=== PATIENT | female | born 1945 | race Caucasian/White ===

== ENCOUNTER 2017-06-16 13:21 | Emergency (ER) | payer MEDICARE, BC ==
[2017-06-16 14:12] VITALS: BP 123/55
--- OUTSIDE RECORDS SUMMARY | 2017-06-16 14:39 | XMS REPORT ---
:1945 External Reference #:[id number] Author Organization [employer] Address [address] [place] [address] Phone [phone] Care Team Providers Name Role Phone Jr Esposito MD Care Team Information Mining Technician Unavailable Jr Esposito MD Primary Care Physician Unavailable Payers Type Date Identification Numbers Payment Provider Subscriber Medicare Primary Policy Number: [id number] Medicare Sharri Almonte PayID: [id number] [address] [place] [address] Health Maintenance Policy Number: [facility] Sharri Almonte [facility] (HMO) [id number] [facility] PayID: [id number] [address] [place] [address] Problems Description No Information Social History Description No Information Available Allergies, Adverse Reactions, Alerts Date Description Reaction Status Severity Comments 02/22/2017 Erythromycin active 02/22/2017 Meloxicam active 02/22/2017 Tramadol active Medications Medication Date Status Form Strength Qnty SIG Indications Ordering Provider Levocetirizine 04/03/ Active Tablets 5mg 60tabs 1 by Kay Garcia 2016 mouth Heri, every day M.D. Ranitidine HCL 02/22/ Active Tablets 150mg 30tabs 1 by Francisco Javier Garcia mouth Heri, every day M.D. Alendronate / Active Tablets 70mg take 1 Unknown Sodium 0000 tablet by mouth weekly Olmesartan / Active Tablets 40-12.5mg Unknown Medoxomil/Hydroch 0000 lorothiazide Synthroid / Active Tablets 112mcg 1 by Unknown 0000 mouth every day (can be generic also) Atenolol / Active Tablets 50mg 1 by Unknown 0000 mouth every day Simvastatin 00/ Active Tablets 10mg take one Unknown 0000 a day by mouth Multivitamins 00/00/ Active Capsules 1 a day Unknown 0000 Coq10 00// Active Capsules 100mg 1 by Unknown 0000 mouth every day Vital Signs Date Vital Result Comment 06/04/2017 Weight 201.00 lb Height 62.5 inches 5'2.50" BMI (Body Mass Index) 36.2 kg/m2 BP Systolic 142 mmHg BP Diastolic 82 mmHg Heart Rate 65 /min O2 % BldC Oximetry 98 % Body Temperature 97.8 F Pain Level 0 04/03/2017 Weight 211.00 lb Height 62.5 inches 5'2.50" BMI (Body Mass Index) 38.0 kg/m2 BP Systolic 123 mmHg BP Diastolic 81 mmHg Heart Rate 69 /min O2 % BldC Oximetry 94 % Body Temperature 98.3 F Pain Level 0 02/22/2017 Weight 210.00 lb Height 62.5 inches 5'2.50" BMI (Body Mass Index) 37.8 kg/m2 BP Systolic 120 mmHg BP Diastolic 73 mmHg Heart Rate 77 /min O2 % BldC Oximetry 96 % Body Temperature 99.0 F Results Description No Information Procedures Date CPT Code Description Status 04/03/2017 66463 Fiberoptic Laryngoscopy,Diag. Completed 02/22/2017 41629 Fiberoptic Laryngoscopy,Diag. Completed Encounters Type Date Location Provider CPT E/M Dx Office Visit 04/03/2017 3:45p Main Office Heri Garcia M.D. [id number] K21.9 E03.9 J31.0 Office Visit 02/22/2017 4:15p Main Office Heri Garcia M.D. 58197 K21.9 E66.9 E03.9 Z85.850 Plan of Care No Information Available
--- NOTE | 2017-06-16 15:14 | UC ---
Nausea/Vomiting/Diarrhea HPI - HPI Summary HPI Summary: ate out last night and this am vomited x 1 and then dry heaves for many hours after. also having chills and diarrhea x 5 times today - liquid with some abdominal discomfort - History of Current Complaint Chief Complaint: UCGI Stated Complaint: VOMITTING/DIARRHEA Time Seen by Provider: 06/16/17 15:04 Hx Obtained From: Patient ?: No Onset/Duration: Sudden Onset Timing: Constant Severity Initially: Moderate Severity Currently: Moderate Location: Diffuse Character: Dull Aggravating Factor(s): Food Alleviating Factor(s): Position, Bowel Movement Nausea/Vomiting Presence: Nauseated, Vomiting Vomiting Frequency: Every 15-60 minutes Nausea/Vomiting Duration: 0-12 hours Vomiting Characteristics: Retching Diarrhea Presence: Yes Diarrhea Frequency: Every 15-60 minutes Diarrhea Duration: 0-12 hours Diarrhea Characteristics: Watery, Malodorous - Allergies/Home Medications Allergies/Adverse Reactions: Allergies Allergy/AdvReac Type Severity Reaction Status Date / Time Erythromycin AdvReac Intermediate GI Upset Verified 06/16/17 14:00 Meloxicam [From Mobic] AdvReac Intermediate GI Upset Verified 06/16/17 14:00 Tramadol [From Ultram] AdvReac Intermediate GI Upset Verified 06/16/17 14:00 Home Medications: Home Medications Levothyroxine TAB* [Synthroid 125 MCG TAB*] 125 mcg PO DAILY 06/16/17 [History Confirmed 06/16/17] PMH/Surg Hx/FS Hx/Imm Hx Previously Healthy: Yes - Surgical History Surgical History: Yes Surgery Procedure, Year, and Place: thyroid - Family History Known Family History: Positive: Hypertension, Other - CVA mother - Social History Alcohol Use: None Substance Use Type: None Smoking Status (MU): Never Smoked Tobacco Type: Cigarettes Have You Smoked in the Last Year: No When Did the Patient Quit Smoking/Using Tobacco: 2004 Review of Systems Constitutional: Chills Skin: Negative Eyes: Negative ENT: Negative Respiratory: Negative Cardiovascular: Negative Gastrointestinal: Abdominal Pain, Vomiting, Diarrhea, Nausea Genitourinary: Negative Motor: Negative Neurovascular: Negative Musculoskeletal: Negative Neurological: Negative Psychological: Negative Is Patient Immunocompromised?: No All Other Systems Reviewed And Are Negative: Yes Physical Exam Triage Information Reviewed: Yes Appearance: Well-Appearing, No Pain Distress, Well-Nourished Vital Signs: Initial Vital Signs Temp 99.1 F 06/16/17 14:03 Pulse 88 06/16/17 14:03 Resp 18 06/16/17 14:03 BP 123/55 06/16/17 14:03 Pulse Ox 100 06/16/17 14:03 Vital Signs Reviewed: Yes Eye Exam: Normal Eyes: Positive: Conjunctiva Clear Neck: Positive: Supple Respiratory Exam: Normal Respiratory: Positive: Chest non-tender, Lungs clear, Normal breath sounds Cardiovascular Exam: Normal Cardiovascular: Positive: RRR, No Murmur Abdominal Exam: Normal Abdomen Description: Positive: Nontender, Soft Bowel Sounds: Positive: Present Musculoskeletal Exam: Normal Neurological: Positive: Alert Psychological: Positive: Normal Response To Family, Age Appropriate Behavior Naus/Vom/Diarrhea Course/Dx - Course Course Of Treatment: increase fluid intake daily - drink gatorade if unable to eat over next 24-48 hours. zofran 4mg po [id number] prn - nausea. take lomotil 1- 2 tabs prn bid for severe diarrhea. if this last for more than 2 days f/u pcp hernesto Discharge - Discharge Plan Condition: Stable Disposition: HOME Prescriptions: Diphenoxylate W/ Atropine [Lomotil] 1 tab PO BID PRN 5 Days #10 tab MDD 2 PRN Reason: Diarrhea Ondansetron [Zofran 4 MG Odt] 4 mg PO Q8HR 3 Days #10 tab Patient Education Materials: Acute Nausea and Vomiting (ED) Referrals: Jr Esposito MD [Primary Care Provider] - 2 Days
== END 2017-06-16 15:36 | disposition home or self-care (01) ==
LOC: UCCORT 13:21
DX: T62.91XA Toxic effect of unspecified noxious substance eaten as food, accidental (unintentional), initial encounter (principal); Y92.9 Unspecified place or not applicable; Z88.1 Allergy status to other antibiotic agents; Z88.5 Allergy status to narcotic agent; Z88.8 Allergy status to other drugs, medicaments and biological substances; Z87.891 Personal history of nicotine dependence
CPT/HCPCS: 99211; G0463

== ENCOUNTER 2017-11-27 17:04 | Emergency (ER) | payer MEDICARE, BC ==
[2017-11-27 17:56] VITALS: BP 147/66
--- NOTE | 2017-11-27 18:13 | UC ---
Throat Pain/Nasal [place]gil HPI - HPI Summary HPI Summary: 72 yo female with sore throat x days no f/c no cough or runny nose no DIOP or myalgia - History of Current Complaint Chief Complaint: UCGeneralIllness Stated Complaint: SORE THROAT Time Seen by Provider: 11/27/17 17:58 Hx Obtained From: Patient Onset/Duration: Gradual Onset, Lasting Days Severity: Moderate Pain Intensity: 6 Pain Scale Used: 0-10 Numeric Cough: None Associated Signs & Symptoms: Positive: Negative - Epiglottits Risk Factors Epiglottis Risk Factors: Negative - Allergies/Home Medications Allergies/Adverse Reactions: Allergies Allergy/AdvReac Type Severity Reaction Status Date / Time MS Erythromycin AdvReac Intermediate GI Upset Verified 06/16/17 14:00 [Erythromycin] MS Meloxicam [From Mobic] AdvReac Intermediate GI Upset Verified 06/16/17 14:00 MS Tramadol [From Ultram] AdvReac Intermediate GI Upset Verified 06/16/17 14:00 PMH/Surg Hx/FS Hx/Imm Hx Endocrine History: Thyroid Disease Cardiovascular History: Hypertension - Surgical History Surgical History: Yes Surgery Procedure, Year, and Place: thyroid - Family History Known Family History: Positive: Hypertension, Other - CVA mother - Social History Alcohol Use: None Substance Use Type: None Smoking Status (MU): Never Smoked Tobacco Type: Cigarettes Have You Smoked in the Last Year: No When Did the Patient Quit Smoking/Using Tobacco: 2004 Review of Systems Constitutional: Negative Skin: Negative Eyes: Negative ENT: Sore Throat Respiratory: Negative Cardiovascular: Negative Gastrointestinal: Negative Genitourinary: Negative Motor: Negative Neurovascular: Negative Musculoskeletal: Negative Neurological: Negative Psychological: Negative Is Patient Immunocompromised?: No All Other Systems Reviewed And Are Negative: Yes Physical Exam Triage Information Reviewed: Yes Appearance: Well-Appearing, No Pain Distress, Well-Nourished Vital Signs: Initial Vital Signs Temp 97.6 F 11/27/17 17:50 Pulse 68 11/27/17 17:50 Resp 17 11/27/17 17:50 BP 147/66 11/27/17 17:50 Pulse Ox 98 11/27/17 17:50 Vital Signs Reviewed: Yes Eyes: Positive: Conjunctiva Clear ENT: Positive: Pharyngeal erythema. Negative: Nasal congestion, Nasal drainage , Trismus, Muffled voice, Hoarse voice Neck exam: Normal Neck: Positive: Supple, Nontender, No Lymphadenopathy Respiratory: Positive: Chest non-tender, Lungs clear, Normal breath sounds, No respiratory distress Cardiovascular: Positive: RRR, No Murmur Bowel Sounds: Positive: Present Musculoskeletal: Positive: ROM Intact, No Edema Neurological: Positive: Alert Psychological Exam: Normal Throat Pain/Nasal Course/Dx - Differential Dx/Diagnosis Provider Diagnoses: acute pharyngitis Discharge - Sign-Out/Discharge Documenting (check all that apply): Discharge/Admit/Transfer - Discharge Plan Condition: Stable Disposition: HOME Prescriptions: Amoxicillin/Clavulanate TAB* [Augmentin TAB 875*] 875 mg PO BID #20 tab Patient Education Materials: Pharyngitis (ED) Referrals: Jr Esposito MD [Primary Care Provider] - 5 Days (if not better) - Billing Disposition and Condition Condition: STABLE Disposition: HOME
== END 2017-11-27 18:15 | disposition home or self-care (01) ==
LOC: UCCORT 17:04
DX: J02.9 Acute pharyngitis, unspecified (principal); Z88.6 Allergy status to analgesic agent; Z88.3 Allergy status to other anti-infective agents; Z88.8 Allergy status to other drugs, medicaments and biological substances; I10 Essential (primary) hypertension; Z87.891 Personal history of nicotine dependence
CPT/HCPCS: 99212; G0463